=== PATIENT | female | born 1955 | race Caucasian/White ===

== ENCOUNTER 2022-12-24 08:07 | Outpatient (CLI) | payer MEDICARE, OTHER ==
[2022-12-24] MEDS ORDERED: Iopamidol 370 76% 100 ML VIAL ONE (10:27)
== END 2022-12-24 08:08 | disposition home or self-care (01) ==
LOC: CT 08:07
PROVIDERS: ATTEND Internal Medicine Hematology & Oncology
DX: C20 Malignant neoplasm of rectum (principal); R91.1 Solitary pulmonary nodule
CPT/HCPCS: 71260; 74160; 82565; Q9967

== ENCOUNTER 2023-01-14 05:45 | Day surgery (SDC) | payer MEDICARE, OTHER ==
[2023-01-11 10:10] VITALS: BMI 18.4
[2023-01-14] MEDS ORDERED: Bupivacaine/Epinephrine 0.25% 30 ML VIAL ONE (06:41)
[2023-01-14] MEDS ORDERED: Lidocaine 2% PF 5 ML VIAL ONE (06:41)
[2023-01-14] MEDS ORDERED: Midazolam HCl 2 mg/2 ml Vial ONE (06:49)
[2023-01-14] MEDS ORDERED: Propofol 500 MG/50 ML VIAL ONE (06:49)
[2023-01-14] MEDS ORDERED: fentaNYL PF 100 MCG/2 ML SYRINGE ONE (06:51)
[2023-01-14 06:57] LABS: #Basophils 0.1 thou/uL (0.0-0.2); #Eosinphils 0.2 thou/uL (0.0-0.7); #Lymphocytes 1.7 thou/uL (1.20-3.40); #Monocytes 0.5 thou/uL (0.11-0.59); #Neutrophils 4.4 thou/uL (1.40-6.50); %Basophils 0.9 % (0.0-1.0); %Eosinophils 2.4 % (0.0-10.0); %Lymphocytes 25.3 % (21.0-51.0); %Monocytes 6.9 % (0.0-10.0); %Neutrophils 64.5 % (42.0-75.0); Hemoglobin 14.3 g/dL (12.0-16.0); Mean Corpuscular HGB CONC 34.2 g/dL (32.0-36.0); Mean Corpuscular Hemoglobin 32.6 pg (27.0-31.0); Mean Corpuscular Volume 95.1 fl (78.0-98.0); Platelet Count 251 10x3/uL (130-400); RBC Distribution Width 11.9 % (11.5-14.5); Red Blood Cell (RBC) Count 4.39 mill/uL (4.20-5.40); White Blood Cell (WBC) Count 6.8 10x3/uL (4.8-10.8)
[2023-01-14] MEDS ORDERED: Sodium Chloride 0.9% 100 ML ONE (07:06)
[2023-01-14] MEDS ORDERED: CEFAZOLIN 2 GM VIAL ONE (07:06)
== END 2023-01-14 09:18 | disposition home or self-care (01) ==
LOC: SDC 05:45
PROVIDERS: ATTEND Surgery
PROC: 0JH60WZ Insertion of Totally Implantable Vascular Access Device into Chest Subcutaneous Tissue and Fascia, Open Approach (ICD-10-PCS; principal; 2023-01-14)
PROC: 02HV33Z Insertion of Infusion Device into Superior Vena Cava, Percutaneous Approach (ICD-10-PCS; 2023-01-14)
DX: C20 Malignant neoplasm of rectum (principal)
CPT/HCPCS: 36561; 71045; 80053; 82248; 82378; 83615; 84100; 84550; 85025; C1788; J1642; J2001; J2250; J2704; J3490

== ENCOUNTER 2023-09-12 08:55 | Outpatient (CLI) | payer MEDICARE, OTHER ==
[2023-09-12 10:21] LABS: #Eosinphils 0.2 10x3/uL (0.0-0.5); #Monocytes 0.4 10x3/uL (0.0-1.1); #Neutrophils 2.4 10x3/uL (1.5-8.4); %Basophils 0.7 % (0.0-2.0); %Eosinophils 3.6 % (0.0-6.0); %Lymphocytes 27.8 % (18.0-47.0); %Monocytes 9.7 % (0.0-10.0); %Neutrophils 57.7 % (40.0-75.0); Hematocrit 37.5 % (34.9-44.5); Hemoglobin 12.9 g/dL (12.0-15.5); Mean Corpuscular HGB CONC 34.4 g/dL (32.0-36.0); Mean Corpuscular Hemoglobin 33.2 pg (27.0-33.0); Mean Corpuscular Volume 96.6 fl (81.6-98.3); Mean Platelet Volume 9.6 fl (7.4-10.4); Platelet Count 150 10x3/uL (150-450); RBC Distribution Width 11.8 % (11.5-14.5); Red Blood Cell (RBC) Count 3.88 10x6/uL (3.90-5.03); White Blood Cell (WBC) Count 4.1 10x3/uL (3.5-10.5)
[2023-09-12 10:39] LABS: Anion Gap 15 mmol/L (10-20); BUN (Urea Nitrogen) 13 mg/dL (9.8-20.1); Calc. Creatinine Clearance 0 mL/min (70-130); Calcium 9.2 mg/dL (7.8-10.44); Carbon Dioxide 25 mmol/L (23-31); Chloride 104 mmol/L (98-107); Estimated GFR 94; Glucose 66 mg/dL (80-115); Sodium 140 mmol/L (136-145)
[2023-09-12 17:35] LABS: Hemoglobin A1c 5.1 % (4.0-6.0)
== END 2023-09-12 08:56 | disposition home or self-care (01) ==
LOC: LABBT 08:55
PROVIDERS: ATTEND Surgery
DX: Z01.818 Encounter for other preprocedural examination (principal); C20 Malignant neoplasm of rectum
CPT/HCPCS: 80048; 83036; 85025; 93005; 93010

== ENCOUNTER 2023-09-12 09:30 | Inpatient (IN) | payer MEDICARE, OTHER ==
[2023-09-12 09:23] VITALS: BMI 19.5
[2023-09-17] MEDS ORDERED: fentaNYL PF 100 MCG/2 ML SYRINGE ONE (06:58)
[2023-09-17] MEDS ORDERED: PROPOFOL 0 ML ONE (06:59)
[2023-09-17] MEDS ORDERED: PROPOFOL 20 ML ONE (06:59)
[2023-09-17] MEDS ORDERED: Propofol 500 MG/50 ML VIAL ONE (07:10)
[2023-09-17] MEDS ORDERED: fentaNYL 50 mcg/mL 1 mL Vial ONE ×2 (07:13→12:18)
[2023-09-17] MEDS ORDERED: Midazolam HCl 2 mg/2 ml Vial ONE (07:13)
[2023-09-17] MEDS ORDERED: Bupivacaine 0.25% HCL 30 ML VIAL ONE (07:14)
[2023-09-17] MEDS ORDERED: Dexmedetomidine 200 MCG/2 ML VIAL ONE ×2 (07:14→11:01)
[2023-09-17] MEDS ORDERED: Acetaminophen 500 MG TAB ONE (07:18)
[2023-09-17] MEDS ORDERED: Scopolamine 1 mg/72 hour Patch ONE (07:18)
[2023-09-17] MEDS ORDERED: Sodium Chloride 0.9% 100 ML ONE (08:48)
[2023-09-17] MEDS ORDERED: CEFAZOLIN 2 GM VIAL ONE (08:48)
[2023-09-17] MEDS ORDERED: PHENYLEPHRINE-NS 100 MCG/ML 10 ML SYRINGE ONE ×2 (09:01→09:04)
[2023-09-17] MEDS ORDERED: Bupivacaine/Epinephrine 0.25% 30 ML VIAL ONE (09:01)
[2023-09-17] MEDS ORDERED: Glycopyrrolate 0.2 MG/ML 5 ML SYRINGE ONE ×3 (09:01→11:00)
[2023-09-17] MEDS ORDERED: ePHEDrine Sulfate 50 MG/10 ML VIAL ONE ×2 (09:01→09:23)
[2023-09-17] MEDS ORDERED: Rocuronium Bromide 10 MG/ML (10ML VIAL) ONE (09:01)
[2023-09-17] MEDS ORDERED: PROPOFOL 200 MG/20 ML VIAL ONE (09:01)
[2023-09-17] MEDS ORDERED: Dexamethasone 20 MG/5 ML VIAL ONE ×2 (09:01→09:16)
[2023-09-17] MEDS ORDERED: Lidocaine 1% PF 5 ML VIAL ONE (09:01)
[2023-09-17] MEDS ORDERED: Ondansetron PF 4 MG/2 ML Vial ONE ×2 (09:01→11:00)
[2023-09-17] MEDS ORDERED: NEOSTIGMINE 3 MG/3 ML SYR 3 MG/3 ML SYRINGE ONE ×2 (09:01→11:00)
[2023-09-17] MEDS ORDERED: Albumin 5% 250 ML ONE (09:28)
[2023-09-17] MEDS ORDERED: MINERAL OIL/WHITE PETROLATUM 3.5 GM TUBE ONE (09:34)
[2023-09-17] MEDS ORDERED: HYDROcodone/Acetaminophen 7.5/325 mg Tablet PO PRN (12:22)
[2023-09-17] MEDS ORDERED: Promethazine HCl 25 MG/ML VIAL IM PRN (12:22)
[2023-09-17] MEDS ORDERED: hydrALAZINE 20 MG/ML VIAL SLOW IVP PRN (12:22)
[2023-09-17] MEDS ORDERED: Ipratropium/Albuterol 3 ML NEB NEB PRN (12:22)
[2023-09-17] MEDS ORDERED: D5 1/2 NS w/20 mEq KCL 1,000 ML ONE (12:25)
[2023-09-17] MEDS: D5 1/2 NS w/20 mEq KCL 1,000 ML IV SCH ×2 (13:53→20:31)
[2023-09-17] MEDS: Acetaminophen 325 MG TAB PO PRN (17:01)
[2023-09-17] MEDS: cefOXitin Sodium 1 GM in Sodium Chloride 0.9% 100 ML IVPB SCH (17:01)
[2023-09-17] MEDS: Famotidine/PF 20 mg/2ml Vial SLOW IVP SCH (20:30)
[2023-09-17] MEDS: Fentanyl 100 MCG/2 ML VIAL SLOW IVP PRN (20:30)
[2023-09-17] MEDS: Ondansetron PF 4 MG/2 ML Vial IVP PRN (20:31)
[2023-09-17] MEDS: Famotidine 20 MG TAB PO SCH (23:06)
[2023-09-18] MEDS: cefOXitin Sodium 1 GM in Sodium Chloride 0.9% 100 ML IVPB SCH (00:11)
[2023-09-18] MEDS: D5 1/2 NS w/20 mEq KCL 1,000 ML IV SCH (05:05)
[2023-09-18 06:08] LABS: #Monocytes 0.7 thou/uL (0.11-0.59); #Neutrophils 11.2 thou/uL (1.40-6.50); %Basophils 0.1 % (0.0-1.0); %Lymphocytes 5.1 % (21.0-51.0); %Monocytes 5.8 % (0.0-10.0); %Neutrophils 88.5 % (42.0-75.0); Hemoglobin 11.8 g/dL (12.0-16.0); Mean Corpuscular HGB CONC 34.7 g/dL (32.0-36.0); Mean Corpuscular Hemoglobin 33.3 pg (27.0-31.0); Mean Platelet Volume 9.7 fL (7.4-10.4); Platelet Count 144 10x3/uL (130-400); RBC Distribution Width 11.4 % (11.5-14.5); Red Blood Cell (RBC) Count 3.54 mill/uL (4.20-5.40); White Blood Cell (WBC) Count 12.6 10x3/uL (4.8-10.8)
[2023-09-18 06:28] LABS: Anion Gap 9 mmol/L (10-20); BUN (Urea Nitrogen) 7 mg/dL (9.8-20.1); Calc. Creatinine Clearance 60 mL/min (70-130); Calcium 8.7 mg/dL (7.8-10.44); Carbon Dioxide 26 mmol/L (23-31); Chloride 98 mmol/L (98-107); Estimated GFR 93; Glucose 173 mg/dL (80-115); Potassium 4.2 mmol/L (3.5-5.1); Sodium 129 mmol/L (136-145)
[2023-09-18] MEDS: Famotidine/PF 20 mg/2ml Vial SLOW IVP SCH ×2 (09:33→21:37)
[2023-09-18] MEDS: Sodium Chloride 0.9% 1,000 ML IV SCH ×2 (09:33→21:36)
[2023-09-18] MEDS: Famotidine 20 MG TAB PO SCH ×2 (09:34→19:48)
[2023-09-18] MEDS: Fentanyl 100 MCG/2 ML VIAL SLOW IVP PRN (21:37)
[2023-09-18] MEDS ORDERED: Sterile Water 10 ML VIAL FS PRN (22:45)
[2023-09-18] MEDS ORDERED: Ziprasidone 20 MG VIAL IM SCH (23:00)
[2023-09-19 05:43] LABS: #Monocytes 0.6 thou/uL (0.11-0.59); #Neutrophils 6.8 thou/uL (1.40-6.50); %Basophils 0.1 % (0.0-1.0); %Lymphocytes 8.4 % (21.0-51.0); %Monocytes 7.8 % (0.0-10.0); %Neutrophils 83.3 % (42.0-75.0); Hematocrit 33.9 % (36.0-47.0); Hemoglobin 11.7 g/dL (12.0-16.0); Mean Corpuscular HGB CONC 34.5 g/dL (32.0-36.0); Mean Corpuscular Hemoglobin 32.4 pg (27.0-31.0); Mean Corpuscular Volume 93.9 fl (78.0-98.0); Platelet Count 111 10x3/uL (130-400); RBC Distribution Width 11.3 % (11.5-14.5); Red Blood Cell (RBC) Count 3.61 mill/uL (4.20-5.40); White Blood Cell (WBC) Count 8.1 10x3/uL (4.8-10.8)
[2023-09-19 06:02] LABS: Anion Gap 11 mmol/L (10-20); BUN (Urea Nitrogen) 6 mg/dL (9.8-20.1); Calc. Creatinine Clearance 70 mL/min (70-130); Calcium 8.4 mg/dL (7.8-10.44); Carbon Dioxide 25 mmol/L (23-31); Chloride 105 mmol/L (98-107); Estimated GFR 97; Glucose 109 mg/dL (80-115); Potassium 3.3 mmol/L (3.5-5.1); Sodium 138 mmol/L (136-145)
[2023-09-19] MEDS: Famotidine/PF 20 mg/2ml Vial SLOW IVP SCH ×2 (09:10→19:43)
[2023-09-19] MEDS: Famotidine 20 MG TAB PO SCH ×2 (09:10→19:41)
[2023-09-19] MEDS: Sodium Chloride 0.9% 1,000 ML IV SCH ×2 (09:11→19:43)
[2023-09-19] MEDS: Ondansetron PF 4 MG/2 ML Vial IVP PRN (09:19)
[2023-09-19] MEDS ORDERED: Ketorolac Tromethamine 30 MG/ML VIAL IVP PRN (12:00)
[2023-09-19] MEDS ORDERED: Ziprasidone 20 MG VIAL IM SCH (16:45)
[2023-09-20] MEDS ORDERED: Ziprasidone 20 MG VIAL IM SCH (02:00)
[2023-09-20] MEDS ORDERED: Sterile Water 10 ML VIAL FS PRN (02:00)
[2023-09-20] MEDS: Famotidine/PF 20 mg/2ml Vial SLOW IVP SCH ×2 (08:25→19:53)
[2023-09-20] MEDS: Sodium Chloride 0.9% 1,000 ML IV SCH (08:26)
[2023-09-20] MEDS: Famotidine 20 MG TAB PO SCH ×2 (08:26→19:47)
[2023-09-20 09:50] LABS: #Monocytes 0.5 thou/uL (0.11-0.59); #Neutrophils 4.7 thou/uL (1.40-6.50); %Basophils 0.3 % (0.0-1.0); %Eosinophils 0.2 % (0.0-10.0); %Lymphocytes 13.1 % (21.0-51.0); %Monocytes 7.6 % (0.0-10.0); %Neutrophils 78.1 % (42.0-75.0); Hematocrit 30.2 % (36.0-47.0); Hemoglobin 10.6 g/dL (12.0-16.0); Mean Corpuscular HGB CONC 35.1 g/dL (32.0-36.0); Mean Corpuscular Hemoglobin 33.4 pg (27.0-31.0); Mean Corpuscular Volume 95.3 fl (78.0-98.0); Mean Platelet Volume 9.8 fL (7.4-10.4); Platelet Count 109 10x3/uL (130-400); RBC Distribution Width 11.6 % (11.5-14.5); Red Blood Cell (RBC) Count 3.17 mill/uL (4.20-5.40)
[2023-09-20 10:22] LABS: ALT (SGPT) 34 U/L (8-55); AST (SGOT) 45 U/L (5-34); Albumin 3.5 g/dL (3.4-4.8); Alkaline Phosphatase 83 U/L (40-110); Anion Gap 11 mmol/L (10-20); BUN (Urea Nitrogen) 8 mg/dL (9.8-20.1); Bilirubin, Total 1.2 mg/dL (0.2-1.2); Calc. Creatinine Clearance 70 mL/min (70-130); Calcium 8.3 mg/dL (7.8-10.44); Carbon Dioxide 26 mmol/L (23-31); Chloride 103 mmol/L (98-107); Estimated GFR 97; Globulin 2.2 g/dL (2.4-3.5); Glucose 145 mg/dL (80-115); Phosphorus 1.8 mg/dL (2.3-4.7); Potassium 2.7 mmol/L (3.5-5.1); Protein, Total 5.7 g/dL (5.8-8.1); Sodium 137 mmol/L (136-145)
[2023-09-20] MEDS: K-Phos Neutral 250 MG TAB PO SCH ×2 (11:28→17:16)
[2023-09-20] MEDS: Acetaminophen 325 MG TAB PO PRN (14:42)
[2023-09-20] MEDS ORDERED: OLANZapine 2.5 MG TAB PO SCH (17:00)
[2023-09-20 17:54] LABS: Anion Gap 14 mmol/L (10-20); BUN (Urea Nitrogen) 11 mg/dL (9.8-20.1); Calc. Creatinine Clearance 73 mL/min (70-130); Calcium 8.8 mg/dL (7.8-10.44); Carbon Dioxide 24 mmol/L (23-31); Chloride 102 mmol/L (98-107); Estimated GFR 99; Glucose 90 mg/dL (80-115); Potassium 3.1 mmol/L (3.5-5.1); Sodium 137 mmol/L (136-145)
[2023-09-20] MEDS ORDERED: Potassium Chloride 20 MEQ TAB PO SCH (18:30)
[2023-09-20] MEDS ORDERED: Haloperidol Lactate 5 MG/ML VIAL SLOW IVP SCH (19:45)
[2023-09-20] MEDS ORDERED: QUEtiapine 25 MG TAB PO SCH (21:15)
[2023-09-21 06:09] LABS: #Monocytes 0.4 thou/uL (0.11-0.59); #Neutrophils 3.4 thou/uL (1.40-6.50); %Basophils 0.4 % (0.0-1.0); %Eosinophils 0.9 % (0.0-10.0); %Lymphocytes 16.5 % (21.0-51.0); %Neutrophils 72.8 % (42.0-75.0); Hematocrit 31.1 % (36.0-47.0); Hemoglobin 10.8 g/dL (12.0-16.0); Mean Corpuscular HGB CONC 34.7 g/dL (32.0-36.0); Mean Corpuscular Hemoglobin 33.2 pg (27.0-31.0); Mean Corpuscular Volume 95.7 fl (78.0-98.0); Mean Platelet Volume 9.9 fL (7.4-10.4); Platelet Count 127 10x3/uL (130-400); RBC Distribution Width 11.5 % (11.5-14.5); Red Blood Cell (RBC) Count 3.25 mill/uL (4.20-5.40); White Blood Cell (WBC) Count 4.7 10x3/uL (4.8-10.8)
[2023-09-21 06:48] LABS: Anion Gap 15 mmol/L (10-20); BUN (Urea Nitrogen) 9 mg/dL (9.8-20.1); Calc. Creatinine Clearance 68 mL/min (70-130); Calcium 8.4 mg/dL (7.8-10.44); Carbon Dioxide 27 mmol/L (23-31); Chloride 100 mmol/L (98-107); Estimated GFR 97; Glucose 76 mg/dL (80-115); Magnesium 1.7 mg/dL (1.6-2.6); Phosphorus 3.1 mg/dL (2.3-4.7); Potassium 2.8 mmol/L (3.5-5.1); Sodium 139 mmol/L (136-145)
[2023-09-21] MEDS ORDERED: Electrolyte Replacement Protocol 1 EACH FS SCH (09:15)
[2023-09-21] MEDS ORDERED: OLANZapine 5 MG TAB PO SCH ×2 (09:15→17:00)
[2023-09-21] MEDS ORDERED: Electrolyte Replacement Protocol FS PRN (09:30)
[2023-09-21] MEDS ORDERED: Magnesium 2 GM/50 ML(in water) 2 GM in Premix 1 BAG IVPB SCH (09:30)
[2023-09-21] MEDS: Cyanocobalamin (Vitamin B-12) 1,000 MCG TAB PO SCH (09:58)
[2023-09-21] MEDS: K-Phos Neutral 250 MG TAB PO SCH ×3 (09:58→17:40)
[2023-09-21] MEDS: Potassium Bicarbonate/Cit Ac 20 MEQ TAB PO SCH ×2 (09:58→14:32)
[2023-09-21] MEDS: Famotidine 20 MG TAB PO SCH ×2 (09:58→22:13)
[2023-09-21] MEDS: Famotidine/PF 20 mg/2ml Vial SLOW IVP SCH ×2 (11:25→22:13)
[2023-09-21] MEDS: Acetaminophen 325 MG TAB PO PRN (14:33)
[2023-09-21 18:15] LABS: Potassium 3.6 mmol/L (3.5-5.1)
[2023-09-22 04:53] LABS: #Eosinphils 0.2 thou/uL (0.0-0.7); #Monocytes 0.4 thou/uL (0.11-0.59); %Basophils 0.6 % (0.0-1.0); %Eosinophils 6.5 % (0.0-10.0); %Lymphocytes 23.4 % (21.0-51.0); %Monocytes 12.1 % (0.0-10.0); %Neutrophils 57.1 % (42.0-75.0); Hematocrit 30.8 % (36.0-47.0); Hemoglobin 10.7 g/dL (12.0-16.0); Mean Corpuscular HGB CONC 34.7 g/dL (32.0-36.0); Mean Corpuscular Hemoglobin 32.6 pg (27.0-31.0); Mean Corpuscular Volume 93.9 fl (78.0-98.0); Mean Platelet Volume 9.5 fL (7.4-10.4); Platelet Count 136 10x3/uL (130-400); RBC Distribution Width 11.5 % (11.5-14.5); Red Blood Cell (RBC) Count 3.28 mill/uL (4.20-5.40); White Blood Cell (WBC) Count 3.6 10x3/uL (4.8-10.8)
[2023-09-22 05:15] LABS: Anion Gap 12 mmol/L (10-20); BUN (Urea Nitrogen) 9 mg/dL (9.8-20.1); Calc. Creatinine Clearance 71 mL/min (70-130); Calcium 8.3 mg/dL (7.8-10.44); Carbon Dioxide 28 mmol/L (23-31); Chloride 103 mmol/L (98-107); Estimated GFR 98; Glucose 90 mg/dL (80-115); Magnesium 2.2 mg/dL (1.6-2.6); Potassium 3.4 mmol/L (3.5-5.1); Sodium 140 mmol/L (136-145)
[2023-09-22] MEDS ORDERED: Potassium Chloride 20 MEQ TAB PO SCH (08:00)
[2023-09-22] MEDS ORDERED: OLANZapine 5 MG TAB PO SCH (09:00)
[2023-09-22] MEDS: Famotidine 20 MG TAB PO SCH (09:08)
[2023-09-22] MEDS: Famotidine/PF 20 mg/2ml Vial SLOW IVP SCH (09:09)
[2023-09-22] MEDS: K-Phos Neutral 250 MG TAB PO SCH ×2 (09:09→14:07)
[2023-09-22] MEDS: Cyanocobalamin (Vitamin B-12) 1,000 MCG TAB PO SCH (09:09)
[2023-09-22 09:13] VITALS: BP 123/80; TEMP 98.6
[2023-09-22 12:01] LABS: Potassium 4.2 mmol/L (3.5-5.1)
[2023-09-22] MEDS ORDERED: Ibuprofen 200 MG TAB PO PRN (14:54)
== END 2023-09-22 18:01 | disposition home or self-care (01) | DRG 330 ==
LOC: SURG A 09-17 05:58 → SURG B 09-17 13:52
PROVIDERS: ADMIT Surgery; ATTEND Internal Medicine
PROC: 0DBP4ZZ Excision of Rectum, Percutaneous Endoscopic Approach (ICD-10-PCS; principal; 2023-09-18)
PROC: 0D1B4Z4 Bypass Ileum to Cutaneous, Percutaneous Endoscopic Approach (ICD-10-PCS; 2023-09-18)
PROC: 8E0W4CZ Robotic Assisted Procedure of Trunk Region, Percutaneous Endoscopic Approach (ICD-10-PCS; 2023-09-18)
DX: C20 Malignant neoplasm of rectum (principal); F05 Delirium due to known physiological condition; Z79.899 Other long term (current) drug therapy; Z98.890 Other specified postprocedural states; E87.6 Hypokalemia; E83.39 Other disorders of phosphorus metabolism
CPT/HCPCS: 36415; 36416; 80048; 80053; 83735; 84100; 85025; 88305; 88309; 97139; A4649; J0694; J1100; J1630; J1650; J1885; J2250; J2405; J2704; J3010; J3475; J3480; J3486; J3490; J7030; J7050; P9045; S0020; S0028

== ENCOUNTER 2024-01-17 10:52 | Outpatient (CLI) | payer MEDICARE, OTHER | END 2024-01-17 10:53 | disposition home or self-care (01) | LOC: BICCT 10:52 | PROVIDERS: ATTEND Internal Medicine Hematology & Oncology | DX: C20 Malignant neoplasm of rectum (principal); R91.1 Solitary pulmonary nodule | CPT/HCPCS: 71260; 74177 ==

== ENCOUNTER 2024-07-30 07:23 | Outpatient (CLI) | payer MEDICARE, OTHER | END 2024-07-30 07:24 | disposition home or self-care (01) | LOC: BICCT 07:23 | PROVIDERS: ATTEND Internal Medicine Hematology & Oncology | DX: J98.4 Other disorders of lung (principal); C20 Malignant neoplasm of rectum | CPT/HCPCS: 36415; 71260; 82565 ==

== ENCOUNTER 2024-10-05 11:39 | Outpatient (CLI) | payer MEDICARE, OTHER | END 2024-10-05 11:40 | disposition home or self-care (01) | LOC: BICRAD 11:39 | PROVIDERS: ATTEND Nurse Practitioner Family | DX: M54.59 Other low back pain (principal) | CPT/HCPCS: 72100 ==

== ENCOUNTER 2024-11-30 07:32 | Outpatient (CLI) | payer MEDICARE, OTHER ==
[2024-11-30] MEDS ORDERED: Iopamidol 370 76% 100 ML VIAL ONE (09:05)
== END 2024-11-30 07:33 | disposition home or self-care (01) ==
LOC: BICCT 07:32
PROVIDERS: ATTEND Internal Medicine Hematology & Oncology
DX: C20 Malignant neoplasm of rectum (principal); R91.1 Solitary pulmonary nodule
CPT/HCPCS: 36415; 71260; 74177; 82565